=== PATIENT | male | born 1995 | race Caucasian/White ===

== ENCOUNTER 2016-10-08 18:46 | Emergency (ER) | payer OTHER ==
[~2016-10-08] VITALS: Ht 208.3 cm; Wt 70.3 kg
[~2016-10-08 18:46] MED LIST: AUGMENTIN 875 M1 TAB PO; IBU600 MG PO
[2016-10-08 18:52] VITALS: BP 155/93
--- NOTE | 2016-10-08 19:03 | ED CARDIAC/CP/PALPITATIONS ---
History of Present Illness General Chief Complaint: Chest Pain Stated Complaint: LEFT SHOULDER AND CHEST PAIN [id number] Source: patient, family Exam Limitations: no limitations Vital Signs & Intake/Output Vital Signs & Intake/Output Vital Signs Date Time Temp Pulse Resp B/P B/P Pulse O2 O2 Flow FiO2 Mean Ox Delivery Rate 10/08 1852 97.8 98 15 155/93 99 Room Air Room Air ED Intake and Output 10/09 0000 10/08 1200 Intake Total Output Total Balance Patient 155 lb Weight Weight Reported by Patient Measurement Method Allergies Coded Allergies: No Known Allergies (10/08/16) Reconcile Medications Ibuprofen 800 MG TABLET 1 TAB PO TID PRN PAIN Triage Note: PT TO ED FOR C/C OF STABBING CHEST PAIN 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 PER PT, "I FEEL A LITTLE SHORT OF BREATH." Triage Nurses Notes Reviewed? yes HPI: 21-year-old male arrived to triage room 6 for evaluation of left-sided chest pain, back pain that started 20 minutes prior to arrival. He reports he just finished a hike when all of a sudden he had left-sided chest pain/back pain. Pain is worse with inspiration and palpation. He took nothing for the pain prior to arrival. He denies cigarette smoking or any trauma. He did start a new job yesterday which included a lot of moving and lifting heavy objects. (FE SARMIENTO APRN) Past History Travel History Traveled to [place] past 21 day No Medical History Any Pertinent Medical History? 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 No (FE SARMIENTO APRN) Review of Systems Review of Systems Constitutional: Reports: no symptoms. EENTM: Reports: no symptoms. Respiratory: Reports: no symptoms. Cardiovascular: Reports: chest pain (CHEST WALL PAIN). GI: Reports: no symptoms. Genitourinary: Reports: no symptoms. Musculoskeletal: Reports: back pain. Skin: Reports: no symptoms. Neurological/Psychological: Reports: no symptoms. Hematologic/Endocrine: Reports: no symptoms. Immunologic/Allergic: Reports: no symptoms. All Other Systems: Reviewed and Negative (FE SARMIENTO APRN) Physical Exam Physical Exam General Appearance: well developed/nourished, no apparent distress, alert, awake , mild distress Head: atraumatic, normal appearance Eyes: Bilateral: normal appearance, PERRL, EOMI. Ears, Nose, Throat: normal pharynx, normal ENT inspection Neck: normal inspection, supple, full range of motion Respiratory: normal breath sounds, no respiratory distress, CHEST TENDER LEFT BREAST Cardiovascular: regular rate/rhythm Gastrointestinal: normal bowel sounds, soft, non-tender Back: normal inspection, normal range of motion Extremities: normal inspection, normal capillary refill, normal range of motion, no edema Neurologic/Psych: no motor/sensory deficits, awake, alert, oriented x 3, normal gait, normal mood/affect Skin: intact, normal color, warm/dry Diagram Chest, Abdomen, Back: 1) TENDERNESS 2) TENDERNESS Core Measures ACS in differential dx? No Severe Sepsis Present: No Septic Shock Present: No (FE SARMIENTO APRN) Progress Differential Diagnosis: costochondritis, musculoskeletal pain, pneumothorax Plan of Care: Orders Procedure Date/time Status EKG 10/09 1847 Active Diagnostic Imaging: Viewed by Me: Radiology Read. Discussed w/RAD: Radiology Read. Radiology Impression: SEE DIAGRAM Initial ED EKG: NSR Comments: PATIENT: FERNANDA JOHNSON PRESENT AGE: 21 PATIENT ACCOUNT NO: [id number] : 96 LOCATION: [facility] ORDERING PHYSICIAN: FE SARMIENTO APRN SERVICE DATE: 10/08/16 EXAM TYPE: RAD - XRY-CHEST XRAY, PA AND LATERAL EXAMINATION: XR CHEST CLINICAL INFORMATION: Left-sided chest and back pain. Evaluate for pneumothorax. COMPARISON: None TECHNIQUE: 2 views of the chest were obtained. FINDINGS: Both lungs are well-expanded and clear of acute pneumonic process. There is no pneumothorax or pleural effusion. Heart size and the pulmonary vascularity is normal. There is no visible rib fracture. The thoracic spine appears unremarkable. IMPRESSION: Unremarkable chest exam. DICTATED BY: RONI PINON,MEÑO DATE/TIME DICTATED:10/08/161934 CAR AND YARD SUPERVISOR:ETHEL DATE/TIME TRANSCRIBED:10/08/161934 CONFIDENTIAL, DO NOT COPY WITHOUT APPROPRIATE AUTHORIZATION. <Electronically signed in Other Vendor System> SIGNED BY: MEÑO TAMAYO MD 10/08/161939 Explain x-ray results to patient and family. He reports a little bit of relief with right sock and ibuprofen. He will get a prescription for ibuprofen for the next couple days and follow up with his primary care provider if the pain continues or any worsening symptoms. (FE SARMIENTO APRN) Departure Departure Time of Disposition: 1944 Disposition: HOME OR SELF CARE Condition: Stable Clinical Impression Primary Impression: Chest wall pain Referrals: JUSTIN PINON,SAMM Calzada (PCP/Family) Additional Instructions: Please take ibuprofen 800 mg 3 times a day with food as needed for pain. Heat to left chest, left back a few times a day and follow up with primary care provider if pain continues for a week. Return to the emergency department for any worsening or concerning symptoms including increased chest pain, shortness of breath, fever, chills. Departure Forms: Customer Survey General Discharge Information Prescriptions: Current Visit Scripts Ibuprofen 1 TAB PO TID PRN PAIN #30 TAB (FE SARMIENTO APRN) PA/WEED INSPECTOR Co-Sign Statement Statement: ED Attending supervision documentation- [] I saw and evaluated the patient. I have also reviewed all the pertinent lab results and diagnostic results. I agree with the findings and the plan of care as documented in the PA's/WEED INSPECTOR's documentation. [X] I have reviewed the ED Record and agree with the PA's/WEED INSPECTOR's documentation. [] Additions or exceptions (if any) to the PAs/WEED INSPECTOR's note and plan are summarized below: [] (ELIUD PINON,VIVIANA) Critical Care Note Critical Care Note Critical Care Time: non-applicable (FE SARMIENTO APRN)
--- NOTE | 2016-10-08 19:40 | RADIOLOGY REPORT ---
EXAMINATION: XR CHEST CLINICAL INFORMATION: Left-sided chest and back pain. Evaluate for pneumothorax. COMPARISON: None TECHNIQUE: 2 views of the chest were obtained. FINDINGS: Both lungs are well-expanded and clear of acute pneumonic process. There is no pneumothorax or pleural effusion. Heart size and the pulmonary vascularity is normal. There is no visible rib fracture. The thoracic spine appears unremarkable. IMPRESSION: Unremarkable chest exam.
[2016-10-08] MEDS ORDERED: IBUPROFEN800 M1 PO (19:59)
== END 2016-10-08 20:05 ==
LOC: ERH 18:46
DX: R07.89 Other chest pain (principal)
CPT/HCPCS: 93005; 93010

== ENCOUNTER 2016-11-22 08:36 | Emergency (ER) | payer OTHER ==
[~2016-11-22] VITALS: Ht 177.8 cm; Wt 71.2 kg
[~2016-11-22 08:36] MED LIST changes: +IBUPROFEN800 M1 PO
--- NOTE | 2016-11-22 09:05 | ED GENERAL ADULT ---
History of Present Illness General Chief Complaint: Animal/Insect Bite Stated Complaint: WORK RELATED INJURY DOG BITE TO NECK Source: patient Exam Limitations: no limitations Vital Signs & Intake/Output Vital Signs & Intake/Output Vital Signs Date Time Temp Pulse Resp B/P B/P Pulse O2 O2 Flow FiO2 Mean Ox Delivery Rate 11/22 0937 98.3 89 18 124/74 100 Room Air 11/22 0842 98.5 77 20 154/92 98 Room Air Allergies Coded Allergies: No Known Allergies (10/08/16) Triage Note: PT TO ED C/O DOG BITE AND SCRATCHES TO NECK. 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 DOG IS UP TO DATE ON SHOTS. PT THINKS HE IS UP TO DATE ON TETANUS. PT'S BOSS IS HERE, STATES SHE DOES NOT HAVE WORK RACHEL COMP, BUT HAS INSURANCE. WORKMAN'S COMP FORM NOT FILED AT THIS TIME. PT WITH SCRATCHES TO LEFT NECK AND PUNCTURE TO NECK. BLEEDING CONTROLLED. Triage Nurses Notes Reviewed? yes Onset: Just prior to arrival Duration: hour(s): (1) Timing: no prior history Injury Environment: work Severity: moderate No Modifying Factors: none HPI: Patient is a 21-year-old male presenting to the emergency Department chief complaint of dog bite and scratches to his neck that happened just prior to arrival while at work. Denies any nausea vomiting fevers chills chest pain or shortness of breath. Dog was up-to-date with immunizations. Patient thinks he is up-to-date with his tetanus immunization. Denies taking anything for symptoms prior to arrival. Nothing seems to make it worse, holding pressure seems to help with the bleeding. Patient reports moderate pain. Patient reports that he was changing the water in the water ball and the dog lunged at his neck with his mouth. Bit him quickly and then released. Attack was unprovoked, he does report that the dog is known to be posttussive of his things , and trespasses related because he touches water bowl. (OCTAVIANO MCKEON) Reconcile Medications Amoxicillin/Potassium Clav (Augmentin 875-125 Tablet) 875 MG-125 MG TABLET 1 TAB PO BID PROPHYLAXIS Ibuprofen 800 MG TABLET 1 TAB PO TID PRN PAIN (DAMON WILLETT,MOY Griffith) Past History Travel History Traveled to [place] past 21 day No Medical History Any Pertinent Medical History? 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 No (OCTAVIANO MCKEON) Review of Systems Review of Systems Constitutional: Reports: no symptoms. Comments Review of systems: See HPI, All other systems negative. Constitutional, no chills fever or weight loss HEENT: No visual changes no sore throat no congestion Cardiovascular: No chest pain ,palpitation Skin, no jaundice no rashes Respiratory: No dyspnea cough sputum or hemoptysis GI: No nausea no vomiting : No dysuria No hematuria Muscle skeletal: no back pain, no neck pain, Neurologic: No numbness no headaches Psych: No stress anxiety Immunology: Up-to-date with immunizations (OCTAVIANO MCKEON) Physical Exam Physical Exam General Appearance: well developed/nourished, no apparent distress, alert, awake , comfortable Comments: Well-developed well-nourished person in no acute distress HEENT: Pupils equally round and reactive to light and accommodation. Nose is atraumatic. Neck: Supple, no lymphadenopathy, limited range of motion secondary to pain, no C-spine tenderness. Mild tenderness to palpation of the soft tissues of the left side of the neck over the abrasions. No crepitus palpated. Back: Nontender Cardiovascular: normal JVP Respiratory: No respiratory distress. Extremity: No edema Neuro: Alert oriented x3 Skin: 1 cm vertical laceration noted over the soft tissue of the neck, midline, no surrounding erythema or edema, no active bleeding. No visible subcutaneous tissue. Superficial abrasions noted to the left side of the neck, tWO5 mm subcutaneous lacerations noted on the posterior aspect of the neck, no active bleeding. No surrounding erythema or edema. No crepitus palpated over any of these areas. Psych: Mood and affect is normal, memory and judgment is normal. Core Measures ACS in differential dx? No CVA/TIA Diagnosis: No Severe Sepsis Present: No Septic Shock Present: No (OCTAVIANO MCKEON) Progress Differential Diagnoses I considered the following diagnoses in my evaluation of the patient: Need FOR prophylaxis against dog bite, laceration, abrasion Plan of Care: Current Medications Sig/Christelel Start time Last Medication Dose Stop Time Status Admin Ibuprofen 800 MG ONCE ONE 11/22 929 UNVr (Motrin) 11/22 930 Initial ED EKG: none Comments: Patient given oral ibuprofen to help with pain on arrival. Lacerations are not gaping, small, well approximated. We will leave these lacerations open as he did not want enclosed contamination. Wound was irrigated with sterile water and Betadine. Bacitracin placed over superficial wounds. Steri-Strip placed over the subcutaneous wounds in the anterior and posterior aspect of the neck. Patient will be started on Augmentin. Flow given ibuprofen to help with pain at home. Educated on signs and symptoms to return. No need for rabies vaccination as dog is up-to-date with immunizations. Patient also up-to-date with tetanus. He will follow up with PCP, educated on signs and symptoms to return. (OCTAVIANO MCKEON) Departure Departure Time of Disposition: 913 Disposition: HOME OR SELF CARE Condition: Stable Clinical Impression Primary Impression: Dog bite Qualifiers: Encounter type: initial encounter Qualified Code: W54.0XXA - Bitten by dog, initial encounter Referrals: JUSTIN PINON,SAMM Calzada (PCP/Family) Additional Instructions: Follow-up with your primary care physician collimating appointment. Take Augmentin as prescribed to help prevent infection. Clean wound with soap and water daily. Return for any increased redness pain, fevers worsening symptoms or concerns. Take [id number] Motrin and Tylenol as directed to help with pain. Departure Forms: Customer Survey General Discharge Information Prescriptions: Current Visit Scripts Amoxicillin/Potassium Clav (Augmentin 875-125 Tablet) 1 TAB PO BID #20 TAB Ibuprofen 1 TAB PO TID PRN PAIN #20 TAB (OCTAVIANO MCKEON) PA/SKIP PITMAN Co-Sign Statement Statement: ED Attending supervision documentation- [] I saw and evaluated the patient. I have also reviewed all the pertinent lab results and diagnostic results. I agree with the findings and the plan of care as documented in the PA's/SKIP PITMAN's documentation. [x] I have reviewed the ED Record and agree with the PA's/SKIP PITMAN's documentation. [] Additions or exceptions (if any) to the PAs/SKIP PITMAN's note and plan are summarized below: [] (MOY JOSE DO) Procedures Additional Procedures Additional Procedures: WOUND CARE Progress: Wounds were irrigated with saline and Betadine. Bacitracin placed over the superficial abrasions on the left side of the neck. Steri-Strips placed over the subcutaneous lacerations. (OCTAVIANO MCKEON) Critical Care Note Critical Care Note Critical Care Time: non-applicable (OCTAVIANO MCKEON)
[2016-11-22] MEDS ORDERED: AUGMENTIN 875-1 EACH PO (09:15)
[2016-11-22] MEDS ORDERED: IBUPROFEN800 M1 PO (09:15)
[2016-11-22 09:37] VITALS: BP 124/74
== END 2016-11-22 09:38 ==
LOC: ERH 08:36
DX: S11.95XA Open bite of unspecified part of neck, initial encounter (principal); W54.0XXA Bitten by dog, initial encounter; Y93.89 Activity, other specified; Y92.9 Unspecified place or not applicable